=== PATIENT | male | born 1965 | race Caucasian/White ===

== ENCOUNTER → 2018-06-18 | Outpatient (CLI) | payer MEDICAID ==
--- NOTE | ~2018-06-18 | EKG ---
[place], [place] ELECTROCARDIOGRAM REPORT NAME: NADIA HORTON UNIT #: [id number] ROOM: DOCTOR: EPIPHANY DRAFT REPORT BIRTHDATE: [birth year] [facility] Test Date: 2018-06-18 Test Time: 14:14:20 Pat Name: NADIA HORTON Department: Room: Gender: Skip Locator: Jina Ricardo : 1965 Requested By: TIMMY FLYNN Order Number: [id number] Reading MD: Maximino Cardona MD Measurements Intervals [place] Rate: 72 P: 32 ME: 164 QRS: -10 QRSD: 105 T: 29 QT: 410 QTc: 449 Interpretive Statements Sinus rhythm Electronically Signed On 06-23-2018 6:51:00 PDT by Maximino Cardona MD CM:EKGRPT:ELECTROCARDIOGRAM REPORT [id number] TIMMY FLYNN MD EPIPHANY DRAFT REPORT TIMMY FLYNN MD
[2018-06-18 14:55] LABS: BASO # 0.1 10*3/uL (0.0-0.1); BASO % 0.7 % (0.0-1.0); EOS # 0.2 10*3/uL (0.0-0.4); EOS % 2.3 % (1.0-4.0); HEMATOCRIT 41.7 % (42.0-52.0); HEMOGLOBIN 14.6 g/dl (14.0-18.0); LYMPH # 1.2 10*3/uL (1.3-4.4); LYMPH % 14.7 % (27.0-41.0); MEAN CELL VOLUME 84.1 fl (80.0-94.0); MEAN CORPUSCULAR HGB 29.4 pg (27.0-31.0); MEAN PLATELET VOLUME 10.7 fl (9.6-12.3); MONO # 0.6 10*3/uL (0.1-1.0); MONO % 7.6 % (3.0-9.0); NEUT # 6.1 10*3/uL (2.3-7.9); NEUT % 74.3 % (47.0-73.0); PLATELET COUNT AUTOMATED 230 10*3/uL (130-400); RED BLOOD COUNT 4.96 10*6/uL (4.50-5.90); RED CELL DISTRI WIDTH 13.2 % (0-14.5); WHITE BLOOD COUNT 8.2 10*3/uL (4.8-10.8)
[2018-06-18 15:23] LABS: ALBUMIN 3.9 gm/dl (3.1-4.5); ALKALINE PHOSPHATASE 101 U/L (45-117); BUN 14 mg/dl (7-24); CHLORIDE 106 mmol/L (98-107); CREATININE 0.92 mg/dL (0.70-1.30); HDL CHOLESTEROL 49 mg/dl (40-60); POTASSIUM 4.1 mmol/L (3.5-5.1); SGOT/AST 15 IU/L (3-35); SGPT/ALT 26 U/L (12-78); SODIUM 140 mmol/L (136-145); TOTAL PROTEIN 7.5 gm/dL (6.4-8.2); TRIGLYCERIDES 279 mg/dl (<150); VLDL CHOLESTEROL 56 mg/dL (6-40)
[2018-06-18 15:30] LABS: CHOLESTEROL 206 mg/dL (<200); LDL CHOLESTEROL 101 mg/dL (9-159)
[2018-06-18 15:59] LABS: VITAMIN D, 25-HYDROXY 23.7 ng/mL (30-100)
== END | disposition home or self-care (01) ==
LOC: RESCLI 03:31
PROVIDERS: Student in an Organized Health Care Education/Training Program
DX: Z12.11 Encounter for screening for malignant neoplasm of colon (principal); I10 Essential (primary) hypertension; I16.0 Hypertensive urgency; F17.200 Nicotine dependence, unspecified, uncomplicated; Z76.89 Persons encountering health services in other specified circumstances; Z71.6 Tobacco abuse counseling; Z88.8 Allergy status to other drugs, medicaments and biological substances

== ENCOUNTER → 2018-12-01 | Outpatient (CLI) | payer OTHER ==
[2018-12-02 07:07] LABS: RHEUMATOID ARTHRITIS FACTOR <10.0 IU/mL (0.0-13.9)
== END | disposition home or self-care (01) ==
LOC: RESCLI 01:08
PROVIDERS: Internal Medicine
DX: M79.642 Pain in left hand (principal); I10 Essential (primary) hypertension; L80 Vitiligo; F17.210 Nicotine dependence, cigarettes, uncomplicated; Z71.6 Tobacco abuse counseling; Z79.899 Other long term (current) drug therapy

== ENCOUNTER → 2018-12-05 | Outpatient (CLI) | payer OTHER ==
[2018-12-06 08:11] LABS: COMPLEMENT C4 001834 27 mg/dL (14-44); RHEUMATOID ARTHRITIS FACTOR <10.0 IU/mL (0.0-13.9)
[2018-12-07 13:05] LABS: ANTI-DSDNA ANTIBODIES 096339 <1 IU/mL (0-9); ANTI-RNP ANTIBODIES 3.7 AI (0.0-0.9); ANTICHROMATIN ANTIBODIES <0.2 AI (0.0-0.9); ANTISCLERODERMA-70 AB <0.2 AI (0.0-0.9); CARDIOLIPIN AB IGA 161836 <9 APL U/mL (0-11); SJOGREN ANTI-SS-A <0.2 AI (0.0-0.9); SJOREN AB, ANTI-SS-B <0.2 AI (0.0-0.9)
[2018-12-07 22:04] LABS: CCP ANTIBODIES IGG/IGA 2 units (0-19)
[2018-12-08 12:08] LABS: DPT CONFIRM RATIO 1.22 Ratio (0.00-1.40); LUPUS DRVVT 43.6 sec (0.0-47.0); PTT-LA 36.5 sec (0.0-51.9); THROMBIN TIME 16.9 sec (0.0-23.0)
[2018-12-08 13:09] LABS: LUPUS REFLEX INTERPRETATION Comment: (.)
[2018-12-08 14:10] LABS: BETA-2 GLYCOPROTEIN I AB,IGG <9 (0-20); BETA-2 GLYCOPROTEIN I AB,IGM <9 (0-32)
== END | disposition home or self-care (01) ==
LOC: LAB 10:00
PROVIDERS: Internal Medicine; Student in an Organized Health Care Education/Training Program
DX: M79.642 Pain in left hand (principal)

== ENCOUNTER → 2021-08-09 | Outpatient (CLI) | payer OTHER | END | disposition home or self-care (01) | LOC: RESCLI 11:25 | PROVIDERS: ATTEND Internal Medicine | DX: K04.7 Periapical abscess without sinus (principal); I10 Essential (primary) hypertension; M19.90 Unspecified osteoarthritis, unspecified site; Z79.899 Other long term (current) drug therapy ==

== ENCOUNTER 2025-02-08 16:49 | Emergency (ER) | payer MEDICARE ==
[~2025-02-08] VITALS: Ht 180.3 cm; Wt 115.7 kg
[2025-02-08] MEDS ORDERED: AMOX-CLAV 875-1 EACH PO (17:28)
== END 2025-02-08 17:33 | disposition home or self-care (01) ==
LOC: ED 16:49
DX: J32.9 Chronic sinusitis, unspecified (principal); I10 Essential (primary) hypertension